=== PATIENT | male | born 1960 | race Caucasian/White ===

== ENCOUNTER → 2017-08-12 | Outpatient (CLI) | payer OTHER ==
--- NOTE | 2017-08-12 17:03 | US ---
EXAMINATION TYPE: US prostate transrectal DATE OF EXAM: 08/12/2017 COMPARISON: NONE CLINICAL HISTORY: N40.1 BPH. This examination was performed using the transrectal probe. EXAM MEASUREMENTS: Gland Size: 5.9 x 3.5 x 6.1cm Volume: 65.3 Predicted PSA: 7.8 Actual PSA (if available):2.15 Patient unable to empty bladder. Unable to visualized seminal vesicles. No masses seen. Appears enlarged. IMPRESSION: 1. Glandular enlargement. 2. No suspicious lesions identified. Predicted PSA = volume x 0.12 ng/ml Calculated Volume = 0.5236 x L x W x H
== END ==
LOC: RADUSMAIN 08:28
PROVIDERS: ATTEND Family Medicine
DX: N40.0 Benign prostatic hyperplasia without lower urinary tract symptoms (principal)
CPT/HCPCS: 76872

== ENCOUNTER → 2017-10-08 | Outpatient (CLI) | payer OTHER ==
--- NOTE | 2017-10-08 17:53 | CONS ---
CONSULTATION REASON FOR CONSULTATION: Consultation note for sleep apnea. 57-year-old male patient diagnosed having obstructive sleep apnea back in 2007 based on a sleep study that was done in [facility]. The patient brings in his CPAP machine with him which is a Respironics unit, auto CPAP unit with a minimum pressure of 8 and a maximum pressure of 12. He is using a Mirage Quattro full face mask. The patient claims that he has been using his CPAP ever since he got it and he is very compliant and he is wearing the mask every night without any interruption. I checked his compliancy data and the patient is using it every night and his compliancy for the past 30 days has been 100% for more than 4 hours. His average CPAP use is around 8 hours per night. AHI while on treatment is down to 9.9. The P90 pressure is around 11.8. No leaks around the mask. He is waking up refreshed and alert during the day and he needs this treatment and he wants his equipment to be refilled through a [employer] a company out of [facility]. No other complaints otherwise for now, no recent weight gain or weight loss. No snoring while on the treatment. No choking or gasping sensation. No grinding of the teeth. No heartburn and no chest pain. The patient goes to bed around 7:00 pm and wakes up 4:30 am in the morning. He is averaging more than 8 hours of sleep per night. He does not wake up in the middle of the night. No other comorbidities for now. PAST MEDICAL HISTORY: AMRIT and BPH. SURGICAL HISTORY: None. DRUG ALLERGIES: None. MEDICATIONS: None. SOCIAL HISTORY: The patient nonsmoker. No alcohol. No history of IV drugs. FAMILY HISTORY: Negative for sleep apnea. REVIEW OF SYSTEMS: 12-point review of system was done and positive findings are mentioned above in history of present illness. PHYSICAL EXAMINATION: BP is 139/82, pulse 64, respirations 16, temperature 98.3, saturation 96% on room air. Weight is 222. Height is 5 feet 9 inches and neck size 16.5 inches, BMI 32.7. General appearance: Calm and comfortable. Head is atraumatic, normocephalic. Neck is short. There is no JVD. No goiter or neck mass. LUNGS: Diminished breath sounds; otherwise clear. HEART: Sounds are regular rate and rhythm. Normal S1, S2. No S3, S4. No murmurs. ABDOMEN: Soft, nontender. No organomegaly. EXTREMITIES: No edema. No cyanosis or clubbing. Neurologically: A0 x 3. There is no focal neurological deficits. PSYCHIATRIC: No anxiety or depression. IMPRESSION: 1. Obstructive sleep apnea. The patient continues to receive successful CPAP therapy. The patient is on an auto CPAP with a minimum pressure of 8, maximum pressure of 14. 2. Benign prostatic hypertrophy. PLAN: 1. Renew the patient's CPAP supplies through [facility] out of [place], [place]. 2. The patient is utilizing Quattro full face mask. 3. Implement good sleep hygiene measures. 4. See me back in a year's time in follow up. No need for CPAP titration. The patient will be kept on the same CPAP machine for now. NEVAEH / JOHN: [id number] /
== END | disposition home or self-care (01) ==
LOC: SLEEP 14:59
PROVIDERS: ATTEND Internal Medicine Critical Care Medicine
DX: G47.33 Obstructive sleep apnea (adult) (pediatric) (principal); N40.0 Benign prostatic hyperplasia without lower urinary tract symptoms; Z99.89 Dependence on other enabling machines and devices
CPT/HCPCS: 99211

== ENCOUNTER → 2018-06-03 | Outpatient (CLI) | payer OTHER ==
--- NOTE | 2018-06-03 17:12 | PN ---
PROGRESS NOTE 57-year-old male patient coming in for routine followup. I saw this patient in initial consultation back in September of 2017. The patient has had a sleep study done in [facility] and he was diagnosed having severe obstructive sleep apnea an AHI of 54. He was utilizing a auto CPAP machine with a minimum pressure of 8 and maximum pressure of 12. He was also utilizing a Mirage Quattro full face mask. During my initial evaluation, I did not do any adjustments and I had the patient continue the same pressure setting and I gave him a Quattro full face mask. I reviewed all of his supplies. On today's evaluation the patient wants to be established locally and he wants also a new CPAP machine knowing that he has gotten a letter from his insurance stating that he qualifies for new CPAP machine. I think that is reasonable to update his CPAP machine and supplies. I checked his compliance data and the patient's achieving more than 4 hours of CPAP use 100% of the time. His average CPAP is 6 hours and 48 minutes and he is still on a BiPAP at a pressure of 8 maximum pressure of 12. I realize that the patient is having some residual apneas while on treatment. His apnea- hypopnea score is at 12.4, and he had 7% leak. I fitted him with an air touch fullface mask medium size. A new CPAP machine will be also sent out through a local DME. No other complaints otherwise for now. REVIEW OF SYSTEMS: 12-point review of system was done. Positive findings are mentioned in history of present illness. PHYSICAL EXAMINATION: BP is 106/82, pulse 80, respirations 16, temp 98.4 saturation 95% on room air. BMI 32. Weight is 220, height is 5 feet 9 inches and respirations 16. GENERAL APPEARANCE: Calm, comfortable. Head is atraumatic, normocephalic. NECK: Supple. No JVD. No goiter or neck masses. LUNGS: Diminished. HEART: Sounds are regular rate and rhythm. Normal S1, S2. No S3. No murmurs. ABDOMEN: Soft, nontender. No organomegaly. EXTREMITIES: No edema. No cyanosis or clubbing. NEUROLOGIC: OA x3. There is no focal neurological deficits. PSYCHIATRIC: Negative for anxiety or depression. IMPRESSION: 1. Obstructive sleep apnea with severe AHI 54 based on a sleep site was done in 2011 in [facility] currently on APAP with a minimum pressure of 8, maximum pressure of 12. 2. Benign prostatic hypertrophy. PLAN: 1. Will give the patient a new APAP machine and adjustment to a maximum pressure of 15 and a minimum pressure of 8 and this will hopefully bring down his apnea score less than 5. 2. We gave him an AirFit touch fullface mask medium size. 3. See me back in 30 to 90 days for a compliancy followup after obtaining his new CPAP machine. NEVAEH / YVETTEN: [id number] /
== END | disposition home or self-care (01) ==
LOC: SLEEP 15:12
PROVIDERS: ATTEND Internal Medicine Critical Care Medicine
DX: G47.33 Obstructive sleep apnea (adult) (pediatric) (principal); N40.0 Benign prostatic hyperplasia without lower urinary tract symptoms; Z99.89 Dependence on other enabling machines and devices

== ENCOUNTER → 2018-08-19 | Outpatient (CLI) | payer OTHER ==
--- NOTE | 2018-08-19 20:13 | SFUN ---
SLEEP CENTER FOLLOW UP NOTE Roland is a 58-year-old male patient, who is coming in for a compliancy check regarding his CPAP machine. The patient has a severe AMRIT with an AHI of 54 and currently he has a ResMed APAP which is set at a minimum pressure of 8 and maximum pressure of 15. He loves his machine and he is waking up much more refreshed and alert during the day. He has no specific complaints. His sleep quality is improved and he has been tolerating the CPAP without any major difficulties. Based on the compliancy data the patient has been utilizing his CPAP more than 4 hours more than 90% of the time. His average CPAP is around 7.4 hours per night. His average pressures of 11.9, leak factor is 2 L/minute. AHI is down to 6.8, based on a 30 day compliancy check. He is trying to lose weight. No morning headaches. He is utilizing a full-face mask. He has no other complaints otherwise. REVIEW OF SYSTEMS: 12-point review of system was done. Positive findings are mentioned above history of present illness. The treatment remains successful. No nocturnal heartburn, chest pain, nausea, vomiting, abdominal pain. No shortness of breath. No altered mentation. No headaches. No sleepiness, no drowsiness. No symptoms of restless legs syndrome. PHYSICAL EXAMINATION: BP is 114/73, pulse 68, respirations 16, temperature 98, weight is 219, saturation 95% on room air. GENERAL APPEARANCE: Calm, comfortable. Head is atraumatic, normocephalic. NECK: Supple. No JVD. No goiter or neck masses. LUNGS: Clear to auscultation. HEART: Sounds regular rhythm. Normal S1, S2. No S3. No murmurs. ABDOMEN: Soft, nontender. No organomegaly. EXTREMITIES: No edema. No cyanosis or clubbing. NEUROLOGIC: The patient is alert and oriented x3. No focal neurological deficits. PSYCHIATRIC: Negative for anxiety or depression. IMPRESSION: 1. Severe obstructive sleep apnea with an AHI of 54. The patient currently has a new CPAP unit, which is an APAP, minimum pressure of 8 and maximum pressure of 15. The treatment is successful. 2. Benign prostatic hypertrophy. 3. Hypersomnia, improved. PLAN: 1. Continue APAP at same level of pressure. 2. Keep the same mask interface. 3. Treatment was successful. The patient fulfills the insurance guidelines regarding compliancy. See me back in a year's time earlier if needed. His treatment is successful for now. MMABENAL / IJN: [id number] /
== END ==
LOC: SLEEP 15:28
PROVIDERS: ATTEND Internal Medicine Critical Care Medicine
DX: G47.33 Obstructive sleep apnea (adult) (pediatric) (principal); N40.0 Benign prostatic hyperplasia without lower urinary tract symptoms

== ENCOUNTER → 2020-10-07 | Day surgery (SDC) | payer OTHER ==
[2020-10-03 11:32] VITALS: BMI 30.8
[~2020-10-07] MED LIST: LACTATED RINGERS 1,000 ML IV SCH; LIDOCAINE 1% (10MG/ML) FOR IV START INTRADERMA ONE; PROPOFOL 10 MG/ML 20 ML VIAL IV ONE
[2020-10-07 08:38] VITALS: RESP 16; TEMP 98.5
--- NOTE | 2020-10-07 09:57 | P.PCN ---
Date of Procedure: 10/07/20 Procedure(s) Performed: BRIEF HISTORY: Patient is a 60-year-old pleasant white male scheduled for an elective colonoscopy as a part of screening for colorectal neoplasia. His last colonoscopy was 10 years ago. PROCEDURE PERFORMED: Colonoscopy with biopsy. PREOPERATIVE DIAGNOSIS: Screening for Colon cancer. IV sedation per Anesthesia. PROCEDURE: After informed consent was obtained, the patient, was brought into the endoscopy unit. IV sedation was administered by Anesthesia under continuous monitoring. Digital rectal examination was normal. Initially the Olympus CF-160 flexible video colonoscope was then inserted in the rectum, gradually advanced into the cecum without any difficulty. Careful examination was performed as the scope was gradually being withdrawn. Ileocecal valve and the appendiceal orifice were visualized and appeared normal. Prep was .. Mucosa of the cecum, ascending colon, transverse colon, descending colon, sigmoid colon, and rectum appeared normal. Scattered sigmoid diverticulosis. Retroflexion was performed in the rectum and no lesions were seen. The patient tolerated the procedure well. IMPRESSION: Normal-appearing colon from rectum to cecum with no evidence of colorectal neoplasia . Scattered sigmoid diverticulosis. RECOMMENDATIONS: Findings of this examination were discussed with the patient as well as his family. He was advised to have a repeat screening colonoscopy in 10 years..
[2020-10-07 10:23] VITALS: BP 126/81; PULSE 67
== END ==
LOC: ORWHC2ENDO 08:26
PROVIDERS: ATTEND Internal Medicine Gastroenterology
DX: Z12.11 Encounter for screening for malignant neoplasm of colon (principal); K57.30 Diverticulosis of large intestine without perforation or abscess without bleeding; N40.0 Benign prostatic hyperplasia without lower urinary tract symptoms
CPT/HCPCS: J2704; G0121

== ENCOUNTER → 2022-07-16 | Outpatient (CLI) | payer OTHER ==
[2022-07-16 14:28] LABS: African American GFR (CKD) 89.2 (60.0-200.0); Anion Gap 11.1 mmol/L (10.00-18.00); BUN/Creat Ratio 15.83 Ratio (12.00-20.00); Blood Urea Nitrogen 16.3 mg/dL (9.0-27.0); Calcium 9.5 mg/dL (8.7-10.3); Carbon Dioxide 24.3 mmol/L (20.0-27.5)
[2022-07-16 14:44] LABS: Basophils # (A) 0.03 X 10*3/uL (0.00-0.10); Basophils % (A) 0.7 %; Eosinophils # (A) 0.07 X 10*3/uL (0.04-0.35); Eosinophils % (A) 1.6 %; HCT 41.6 % (39.6-50.0); HGB 14.6 g/dL (13.0-17.0); Immature Grans, Automated 0.4 %; Lymphocytes # (A) 1.16 X 10*3/uL (0.90-5.00); Lymphocytes % (A) 25.8 %; MCH 30.5 pg (27.0-32.0); MCHC 35.1 g/dL (32.0-37.0); Mean Platelet Volume 10.4 fL (9.5-12.2); Monocytes # (A) 0.34 X 10*3/uL (0.20-1.00); Monocytes % (A) 7.6 %; NRBC Per 100 WBC 0 /100 WBCS (0.0-0.0); Neutrophils # (A) 2.87 X 10*3/uL (1.80-7.70); Neutrophils % (A) 63.9 %; Platelet Count 269 X 10*3/uL (140-440); RBC 4.78 X 10*6/uL (4.40-5.60); RDW 12.2 % (11.5-14.5); WBC 4.49 X 10*3/uL (4.50-10.00)
[2022-07-16 15:12] LABS: Appearance,Urine Turbid (Clear); Bacteria,Urine 4+ /HPF (None Seen); Bilirubin,Urine Negative (Negative); Blood,Urine Small (Negative); Calcium Oxalate Crystals,Urine Present /LPF (None Seen); Color,Urine Yellow (Yellow); Ketones,Urine Negative (Negative); Nitrite,Urine Negative (Negative); Specific Gravity,Urine 1.017 (1.001-1.030); Urobilinogen,Urine 0.2 (0.2,1.0)
== END | disposition home or self-care (01) ==
LOC: LABPAT 08:42
PROVIDERS: ATTEND Urology
DX: Z01.812 Encounter for preprocedural laboratory examination (principal); N40.1 Benign prostatic hyperplasia with lower urinary tract symptoms; N13.8 Other obstructive and reflux uropathy
CPT/HCPCS: 80048; 81001; 85025; 87086

== ENCOUNTER 2022-07-27 07:30 | Inpatient (IN) | payer OTHER ==
[2022-07-25 09:31] VITALS: BMI 29.8
--- NOTE | 2022-07-26 16:41 | P.HPIHPCON ---
History of Present Illness H&P Date: 07/27/22 Chief Complaint: BPH, urinary retention This is a 62-year-old male with history of urinary retention, has failed multiple trial of void. Underwent a transrectal ultrasound that showed evidence of an 82 g prostate. Cystoscopy was consistent with obstructive prostate. Discussed with him given the size of his prostate the option of robotic simple prostatectomy versus HoLEP. Discussed them the risk and benefit of each approach. He agreed to proceed with a robotic simple prostatectomy. Discussed with him the risk which includes but not limited to bleeding, infection, urinary incontinence, erectile dysfunction, strictures, and persistent retention. Discussed also with him risk from anesthesia. He understood all the risk and agreed to proceed with a robotic simple prostatectomy Consent for Procedure: I have explained the operation/procedure to the patient, including the risks, benefits, side effects, alternative therapies (including not receiving the proposed treatment or service), the likelihood of the patient achieving his/her goals, and potential recuperation problems for the procedure/sedation/analgesia, as well as any blood products, if indicated. I also explained to the patient the risks, benefits and side effects of the alternatives, as well as the risks related to not receiving the proposed procedure, care, treatment, or services. Past Medical History Past Medical History: Prostate Disorder, Sleep Apnea/CPAP/BIPAP Additional Past Medical History / Comment(s): USES CPAP MACHINE History of Any Multi-Drug Resistant Organisms: None Reported Past Surgical History: No Surgical Hx Reported Additional Past Surgical History / Comment(s): COLONOSCOPY Past Anesthesia/Blood Transfusion Reactions: No Reported Reaction Past Psychological History: No Psychological Hx Reported Smoking Status: Never smoker Past Alcohol Use History: Rare Past Drug Use History: None Reported - Past Family History Mother Family Medical History: No Reported History Medications and Allergies Home Medications Medication Instructions Recorded Confirmed Type Ciprofloxacin HCl [Cipro] 500 mg PO BID 07/25/22 07/25/22 History Nf-Retinavits 1 dose PO DAILY 07/25/22 History Tamsulosin HCl [Flomax] 0.4 mg PO BID 07/25/22 07/25/22 History Allergies Allergy/AdvReac Type Severity Reaction Status Date / Time No Known Allergies Allergy Verified 07/25/22 09:15 Surgical - Exam - General no distress, no pain - Eyes normal ocular movement, no pale - ENT normal nares, normal mucosa - Respiratory normal expansion, normal respiratory effort - Abdomen Abdomen: soft, non tender Assessment and Plan Assessment: OR for robotic simple prostatectomy
[~2022-07-27 07:30] MED LIST changes: +DEXAMETHASONE SOD PHOSPHATE 4 MG/ML 1 ML VIAL IV ONE; -LACTATED RINGERS 1,000 ML IV SCH; -LIDOCAINE 1% (10MG/ML) FOR IV START INTRADERMA ONE; +LIDOCAINE 1% (10MG/ML) FOR IV START INTRADERMA PRN; +MIDAZOLAM 2 MG/2 ML VIAL IV PRN; +ONDANSETRON 4 MG/2 ML VIAL IVP ONE; -PROPOFOL 10 MG/ML 20 ML VIAL IV ONE
[2022-07-27] MEDS: LACTATED RINGERS 1,000 ML IV SCH (10:15)
[2022-07-27] MEDS ORDERED: MIDAZOLAM 2 MG/2 ML VIAL IVP ONE (11:20)
[2022-07-27] MEDS ORDERED: fentaNYL (PF) 50 MCG/1 ML VIAL IVP ONE (11:22)
--- NOTE | 2022-07-27 11:52 | P.ANPRN ---
Procedure Note - Anesthesia - Nerve Block Performed Bilateral Erector Spinae Time Out Performed: Yes (:21) Date of Procedure: 07/27/22 Procedure Start Time: Procedure Stop Time: Location of Patient: PreOp Indication: Acute Post-Operative Pain, Requested by Surgeon (Dr Ashton) Sedation Type: Sedate with meaningful contact maintained Preparation: Sterile Prep Position: Prone Catheter: None Needle Types: Pajunk Needle Gauge: 21 Ultrasound used to visualize needle placement: Yes Ultrasound used to observe medication spread: Yes Injectate: 0.5% Ropivacaine (see comment for volume) (15cc +10cc PF Normal salin each side) Blood Aspirated: No Pain Paresthesia on Injection Noted: No Resistance on Injection: Normal Image Stored and Saved: Yes Events: Uneventful and Well Tolerated
[2022-07-27] MEDS ORDERED: KETOROLAC 15 MG/ML 1 ML VIAL ONE (13:34)
[2022-07-27] MEDS ORDERED: fentaNYL (PF) 50 MCG/ML 2 ML AMP ONE (13:34)
[2022-07-27] MEDS ORDERED: ROCURONIUM 10 MG/ML (5 ML VIAL) IV ONE (13:34)
[2022-07-27] MEDS ORDERED: NEOSTIGMINE 1 MG/ML 10 ML VIAL ONE (13:34)
[2022-07-27] MEDS ORDERED: MIDAZOLAM 2 MG/2 ML VIAL ONE (13:34)
[2022-07-27] MEDS ORDERED: HYDROmorphone (PF) 1 MG/ML ONE (13:34)
[2022-07-27] MEDS ORDERED: SUCCINYLCHOLINE CHLORIDE 200 MG/10 ML VIAL IV ONE (13:34)
[2022-07-27] MEDS ORDERED: PROPOFOL 10 MG/ML 20 ML VIAL IV ONE (13:34)
[2022-07-27] MEDS ORDERED: ROPIVACAINE 5 MG/ML 30 ML VIAL ONE (13:34)
[2022-07-27] MEDS ORDERED: GLYCOPYRROLATE 0.2 MG/ML 2 ML VIAL ONE (13:34)
[2022-07-27] MEDS ORDERED: LIDOCAINE 2% INJ 20 MG/ML (2 ML VIAL) ONE (13:34)
[2022-07-27] MEDS ORDERED: SODIUM CHLORIDE 0.9% (PF) 10 ML VIAL ONE (13:34)
[2022-07-27] MEDS ORDERED: LACTATED RINGERS 1,000 ML IV ONE ×4 (13:38→15:01)
[2022-07-27] MEDS ORDERED: BUPIVACAINE (PF) 0.25% 30 ML VIAL SQ ONE ×2 (14:38→16:31)
--- NOTE | 2022-07-27 16:49 | P.OP ---
Date of Procedure: 07/27/22 Preoperative Diagnosis: BPH, urinary retention Postoperative Diagnosis: same Procedure(s) Performed: Robotic simple prostatectomy Implants: none Anesthesia: SOHEILA Surgeon: Oswald Ashton Estimated Blood Loss (ml): 100 Pathology: other (prostate adenoma) Condition: stable Disposition: PACU Indications for Procedure: This is a 62-year-old male with history of urinary retention, has failed multiple trial of void. Underwent a transrectal ultrasound that showed evidence of an 82 g prostate. Cystoscopy was consistent with obstructive prostate. Discussed with him given the size of his prostate the option of robotic simple prostatectomy versus HoLEP. Discussed them the risk and benefit of each approach. He agreed to proceed with a robotic simple prostatectomy. Discussed with him the risk which includes but not limited to bleeding, infection, urinary incontinence, erectile dysfunction, strictures, and persistent retention. Discussed also with him risk from anesthesia. He understood all the risk and agreed to proceed with a robotic simple prostatectomy Description of Procedure: After preoperative antibiotics were started, the patient was taken to the operating room. Anesthesia was induced and the patient was placed in a supine position with adequate padding of the pressure points, shoulders, back, legs and arms. He was then prepped and draped in the standard fashion. A critical pause was performed using two patient identifiers. A 16F oneal catheter was placed to gravity drainage. I attemped to obtain pneumoperitoneum using a Veres needle but was not able to obtain an adequate drop test to conrfrime needle was in the peritoneal cavity . Next a midline incision was made, subcutaneous tissue was dissected down using electrocautery. Next a fascia was entered sharply. Next a gel point was placed, and the camera port was placed through the gel point. after pneumoperitoneum was obtained. Under direct vision a 8mm robotic ports was placed lateral to each rectus slightly below the camera port. The left iliac fossa 8mm port was placed. The right assistant auto center manager right iliac fossa 12mm port and right paramedian 5mm portwere placed. After the patient was placed in the trendelenberg position, the robot was then docked to the 8mm robotic ports and then each robotic arm and tower was checked in relation to the patient's legs and hands to avoid inadvertent compression. The peritoneal cavity was inspected. Adhesions were taken down along the left lower quadrant An inverted U-shaped incision began laterally to the left medial umbilical ligament and extended high across the midline to the right umbilical ligament. The limbs of the "U" extended to the level of the vasa on both sides. We next developed the preperitoneal space and the space of Retzius. Of note the bladder was adherent to the left pelvic sidewall, and there was no surgical plane along that site. Using electrocautery a was able to dissect the bladder away from the sidewall. After mobilizing the bladder, the bladder prostate junction was identified. Cautery was used to dissected the bladder away from the prostate, the incision was made in close proximity to the prostate, and incision was extended laterally and at this point the plane between the adenoma and the surgical capsule is identified. Both ureteral orifices were identified and neither was injured during the dissection . The adenoma was dissected off of the capsule by combination of blunt dissection and minimum cautery. dissection was initially started along the anterior surface and posterior surface of adenoma, and this was carried laterally. The dissection was carried to the apex, at this point the urethral-prostatic junction was visualized and the prostate was transected at the junction. Prostate adenoma was placed in an endocatch bag . A 9and 9 inch 3-0 V-Lock suture was used to anastomose the urethra and bladder, starting at the 6:00 posterior position. Mucosa was secured in every stitch, to ensure a mucosa to mucosa anastomosis. The stitch was regularly cinched and the anastomosis tightened. . The 20 Fr Oneal catheter was advanced, the bladder filled, and the anastomosis was tested. Anastomsis was watertight at 150 mL. balloon was inflated to 10 mL The robot was undocked. specimen was extracted from the supraumbilical incision. The periumbilical fascia was closed with 1-0-PDS suture in figure of 8 fashion. All ports were closed with a subcuticular 4-0 monocryl and Dermabond. Sponge, instrument, and needle counts were correct at the end of the case x2. The patient tolerated the surgery well and without complication. He awoke without difficulty and was taken to the recovery room in stable condition
[2022-07-27] MEDS: HYDROmorphone 0.5 MG/0.5 ML SYRINGE IVP PRN ×3 (17:25→18:30)
[2022-07-27] MEDS: HEPARIN SODIUM,PORCINE/PF 5,000 UNIT/0.5 ML SYRINGE SQ SCH ×2 (18:53→22:54)
[2022-07-27] MEDS: KETOROLAC 15 MG/ML 1 ML VIAL IVP SCH ×2 (19:07→22:54)
[2022-07-27] MEDS ORDERED: ONDANSETRON 4 MG/2 ML VIAL IVP PRN (20:55)
[2022-07-27] MEDS: D5-0.45% NACL WITH KCL 20MEQ/L 1,000 ML IV SCH (21:46)
[2022-07-27] MEDS: CIPROFLOXACIN HCL 500 MG TAB PO SCH (21:47)
[2022-07-27] MEDS: TAMSULOSIN 0.4 MG CAP.ER.24H PO SCH (22:54)
[2022-07-28] MEDS: KETOROLAC 15 MG/ML 1 ML VIAL IVP SCH (05:27)
[2022-07-28] MEDS: LACTATED RINGERS 1,000 ML IV SCH (05:28)
[2022-07-28] MEDS: D5-0.45% NACL WITH KCL 20MEQ/L 1,000 ML IV SCH ×2 (05:28→13:40)
[2022-07-28] MEDS: HYDROcodone/APAP 5-325MG 1 EACH TAB PO PRN ×2 (06:49→10:47)
[2022-07-28] MEDS: HEPARIN SODIUM,PORCINE/PF 5,000 UNIT/0.5 ML SYRINGE SQ SCH (07:36)
[2022-07-28] MEDS: TAMSULOSIN 0.4 MG CAP.ER.24H PO SCH (07:36)
[2022-07-28] MEDS: CIPROFLOXACIN HCL 500 MG TAB PO SCH (07:36)
[2022-07-28 07:41] VITALS: BP 115/71; PULSE 68; RESP 16; TEMP 98
--- NOTE | 2022-07-28 12:05 | P.DS ---
Providers Date of admission: 07/27/22 10:05 Expected date of discharge: 07/28/22 Attending physician: Oswald Ashton MD Primary care physician: [facility] Course: On the day of admission, the patient underwent an uncomplicated robotic-assisted laparoscopic simple prostatectomy. The perioperative course was unremarkable. The patient remained afebrile with stable vital signs. On the first postoperative day, he reported only mild incisional discomfort. The incisions were noted to be clean and dry. The Kong catheter was draining clear yellow urine. He felt ready to be discharged home, but was advised to wait until he ate breakfast and ambulated. Procedures: Robotic-assisted laparoscopic simple prostatectomy in 07/27/2022 Patient Condition at Discharge: Good Plan - Discharge Summary Discharge Rx Participant: No New Discharge Prescriptions: New Ciprofloxacin HCl [Cipro] 500 mg PO Q12HR 3 Days #6 tab Ketorolac [Toradol] 10 mg PO Q6HR PRN #12 tab PRN Reason: Pain No Action Ciprofloxacin HCl [Cipro] 500 mg PO BID Tamsulosin HCl [Flomax] 0.4 mg PO BID Nf-Retinavits 1 dose PO DAILY Discharge Medication List Ciprofloxacin HCl [Cipro] 500 mg PO BID 07/25/22 [History] Nf-Retinavits 1 dose PO DAILY 07/25/22 [History] Tamsulosin HCl [Flomax] 0.4 mg PO BID 07/25/22 [History] Ciprofloxacin HCl [Cipro] 500 mg PO Q12HR 3 Days #6 tab 07/28/22 [Rx] Ketorolac [Toradol] 10 mg PO Q6HR PRN #12 tab 07/28/22 [Rx] Follow up Appointment(s)/Referral(s): Oswald Ashton MD [STAFF PHYSICIAN] - 10 Days Activity/Diet/Wound Care/Special Instructions: Discharge home with Kong catheter. OK to shower. Diet as tolerated. No lifting, driving, or strenuous activity. Reassure patient that abdominal wall ecchymosis and penoscrotal swelling are normal. Instruct patient to complete the course of Cipro he was taking prior to surgery, and to begin taking his new prescription for Cipro one day prior to his follow-up appointment with Dr. Ashton (at which time the Kong catheter will be removed). Discharge Disposition: HOME SELF-CARE
== END 2022-07-28 14:20 | disposition home or self-care (01) | DRG 708 ==
LOC: EDSTATUS 07:30 → 2ORMAIN 10:05 → 4SSUR 17:48
PROVIDERS: ADMIT Urology; ATTEND Urology
PROC: 8E0W4CZ Robotic Assisted Procedure of Trunk Region, Percutaneous Endoscopic Approach (ICD-10-PCS; principal; 2022-07-27 11:55)
PROC: 0VT04ZZ Resection of Prostate, Percutaneous Endoscopic Approach (ICD-10-PCS; principal; 2022-07-27 11:55)
DX: N40.1 Benign prostatic hyperplasia with lower urinary tract symptoms (principal); R33.8 Other retention of urine; Z28.9 Immunization not carried out for unspecified reason
CPT/HCPCS: 64999; 86850; 86900; 86901; 88307

== ENCOUNTER → 2023-08-20 | Outpatient (CLI) | payer OTHER ==
--- NOTE | 2023-08-22 09:40 | CT ---
6 EXAMINATION TYPE: CT brain w con DATE OF EXAM: 08/20/2023 COMPARISON: None HISTORY: Bony prominence on frontal skull. CT DLP: 1098.8mGycm CONTRAST: CT scan of the head is performed with IV Contrast, patient injected with 100 cc mL of Isovue 370. Unenhanced followed by contrast enhanced CT of the brain is submitted for evaluation. The ventricles are midline. At the site of clinical concern left frontal region there is a osseous structures are n oted arising from or directly adjacent to the left frontal bone measuring 8.6 x 5.4 x 7 mm which may reflect osteoma or soft tissue calcification. There is no evidence for intracranial hemorrhage or ex tra-axial collection. No mass effects are identified. Visualized bony calvarium is intact. Contras t is administered and no enhancing lesions are detected. No pathologic enhancement is identified. I f symptoms persist consider MRI. IMPRESSION: At the site of clinical concern left frontal region there is a osseous structures are noted arising from or directly adjacent to the left frontal bone measuring 8.6 x 5.4 x 7 mm which may reflect osteo ma or soft tissue calcification.
== END | disposition home or self-care (01) ==
LOC: RADCTMAIN 15:01
PROVIDERS: ATTEND Family Medicine
DX: D16.4 Benign neoplasm of bones of skull and face (principal)
CPT/HCPCS: 70460; Q9967